=== PATIENT | female | born 1960 | race Caucasian/White ===

== ENCOUNTER 2024-05-31 10:02 | Observation (INO) ==
[~2024-05-31 10:02] MED LIST: NS 0.45% 1000 ml BAG 1,000 ML IV SCH; Naloxone 0.4 mg VIAL 0.4 mg/ml 1 ml VIAL IV PRN; Ondansetron 4 mg VIAL 2 MG/ML 2 ml VIAL IV PRN; fentaNYL 100 mcg/2 ml 50 MCG/ML VIAL IV PRN
[2024-05-31] MEDS ORDERED: Tranexamic Acid 1 GM/100ML BAG 2,000 MG/200 ML BAG IV ONE (10:43)
[2024-05-31] MEDS ORDERED: ceFAZolin 2 GM PREMIX 2 GM/50 ML BAG ONE (10:43)
[2024-05-31] MEDS ORDERED: Lidocaine 2% PF 5 ML VIAL ONE (10:48)
[2024-05-31 10:50] LABS: Rapid COVID-19 Molecular Undetected (Undetected)
[2024-05-31] MEDS ORDERED: Scopolamine 1 mg/72hr PATCH ONE (11:08)
[2024-05-31] MEDS: Scopolamine 1 mg/72hr PATCH TRANSDERM ONE (11:09)
[2024-05-31] MEDS: Lactated Ringers 1000 ml BAG 1,000 ML IV SCH ×2 (11:10→17:00)
[2024-05-31] MEDS ORDERED: ROPIVACAINE 5 MG/ML 30 ML BTL (0.5%) ONE ×2 (11:21→12:34)
[2024-05-31] MEDS ORDERED: Midazolam 5 mg/5 ml VIAL 1 mg/ml 5 ml VIAL (5 mg) ONE (11:21)
[2024-05-31] MEDS ORDERED: fentaNYL 100 mcg/2 ml 50 MCG/ML VIAL ONE (11:21)
[2024-05-31] MEDS ORDERED: Propofol 10 MG/ML 20 ML BTL ONE ×2 (13:36→13:44)
[2024-05-31] MEDS ORDERED: HYDROmorphone 0.5 MG/0.5 ML SYRINGE ONE (13:46)
[2024-05-31] MEDS ORDERED: Dexamethasone IV 4 MG/ML VIAL 1 ml VIAL ONE (13:58)
[2024-05-31] MEDS ORDERED: Ondansetron 4 mg VIAL 2 MG/ML 2 ml VIAL ONE (13:58)
[2024-05-31] MEDS ORDERED: Ondansetron ODT 4 mg TAB 4 MG TAB PO PRN (15:42)
[2024-05-31] MEDS ORDERED: Calcium Carb (TUMS) 500 mg CHEW TAB PO PRN (15:42)
[2024-05-31] MEDS ORDERED: Magnesium Hydroxide LIQ 30 ML UDC PO PRN (15:42)
[2024-05-31] MEDS ORDERED: Ondansetron 4 mg VIAL 2 MG/ML 2 ml VIAL IV PRN (15:42)
[2024-05-31] MEDS ORDERED: Lactulose 30 ml UDC PO PRN (15:42)
[2024-05-31] MEDS: Acetaminophen IV 1 GM/100ML 1,000 MG/100 ML BAG IV ONE (17:20)
[2024-05-31] MEDS: Buffered Lidocaine 1% SYRIN 1 ml INTRADERM ONE (17:20)
[2024-05-31] MEDS ORDERED: Fluticasone NASAL SPRAY 50MCG 16 gm SPRAY BTL INTRANASAL PRN (17:30)
[2024-05-31] MEDS: Magnesium Hydroxide LIQ 30 ML UDC PO SCH (21:44)
[2024-05-31] MEDS: DULoxetine DR 20 mg CAP PO SCH (21:44)
[2024-05-31] MEDS: Mirabegron 25 mg ER TAB (NF) PO SCH (21:44)
[2024-05-31] MEDS: DULoxetine DR 30 mg CAP PO SCH (21:44)
[2024-05-31] MEDS: ceFAZolin 2 GM PREMIX 2 GM/50 ML BAG IV SCH (21:49)
[2024-05-31] MEDS: Morphine 2 MG/ML SYRINGE IV PRN (22:07)
[2024-06-01 06:05] LABS: Hematocrit 30.9 % (35-45); Hemoglobin 10.8 g/dL (11.5-14.3); Mean Platelet Volume 7.3 fL (7.5-11.2); Platelet Count 239 10^3/uL (150-450)
[2024-06-01 06:44] LABS: Calcium 8.3 mg/dL (8.6-10.3); Creatinine, Serum 0.87 mg/dL (0.51-0.95); Potassium 4.4 mmol/L (3.5-5.0); eGFR CKD-EPI 74.4 (>60)
[2024-06-01] MEDS: Vitamin THERAPEUTIC TAB PO SCH (09:13)
[2024-06-01 10:03] VITALS: BP 132/73
== END 2024-06-01 14:00 | disposition home or self-care (01) ==
LOC: SSU 10:02 → OR 10:02
PROVIDERS: ADMIT Orthopaedic Surgery Adult Reconstructive Orthopaedic Surgery; ATTEND Orthopaedic Surgery Adult Reconstructive Orthopaedic Surgery